=== PATIENT | male | born 1945 | race Caucasian/White ===

== ENCOUNTER 2025-04-14 13:01 | Outpatient (AMB) | payer MEDICARE, SELFPAY ==
[2025-04-14 13:08] VITALS: BMI 29.0
--- NOTE | 2025-04-14 13:08 | A.PHYSOV_ITS ---
Vital Signs 04/14/25 13:08 Height 5 ft 7 in Weight 185 lb BMI 29.0 Intake Visit Reasons: F/U after injection 02/24/2025 Intake Note: Patient is a 79 year old male in office today for a follow up after Bilateral L4 Transforaminal Epidural Injection 02/24/25. Patient felt good for a month. Pain has been back since . [employer] Required: No Allergies lactose Allergy (Unknown, Verified 04/14/25 13:10) Unknown Penicillins Allergy (Unknown, Verified 04/14/25 13:10) Unknown HPI Comments Details: History of Present Illness The patient is an 79 year old male presenting with a follow-up visit for chronic lower back pain, chronic neck pain, and lumbar radiculitis. He received bilateral L4 transforaminal injections on February 24, 2025, which provided a 90% reduction in pain for about one month. The back pain recurred after he was coughing nonstop for a week and and it was severe enough that he was bedridden on . The recurrence of pain coincided with a bad cold that caused him to cough continuously for three weeks, for which he visited the hospital a couple of times. His pain is aggravated by standing and getting up and down, and it is relieved by sitting. He also has a history of pain at the base of his thumbs, for which he received bilateral thumb CMC joint injections on February 19, 2025. He reports that his thumbs have been good since the injections. Pain Description - Location: Lower back, chronic neck pain, and a history of pain at the base of the thumbs. - Quality: Aching. - Severity: The patient described the pain as hurting like hell and noted that on , he was flat on his back and could not get out of bed. - Aggravating Factors: Pain is aggravated by standing, getting up and down from a chair, and getting out of bed. - Alleviating Factors: Pain feels better when sitting down. - Associated Symptoms: He experienced his hands freezing up while he had a cold. Results [facility] Medical History (Updated 04/14/25 @ 13:28 by Renato Parry DO) Osteoarthritis of carpometacarpal (CMC) joint of left thumb Arthritis of carpometacarpal (CMC) joint of right thumb Spinal stenosis, lumbar region with neurogenic claudication Lumbar radiculitis Surgical History History of hand surgery History of cataract surgery History of appendectomy History of hernia repair History of hemorrhoidectomy Hx of CABG Social History Household Members: Spouse Alcohol intake: current Alcohol intake frequency: does not drink Patient Tobacco Use Status: Former Tobacco user Current occupational status: retired Review of Systems Narrative Review of Systems - Constitutional: Denies fever or chills. - Respiratory: Reports a history of a bad cold with significant coughing for three weeks. - Musculoskeletal: Reports recurring lower back pain, which is aggravated by standing and improves with sitting. - General: Reports a history of generalized body aches and hands freezing up associated with a recent viral infection. Physical Exam Exam Exam: Physical Exam Patient appears to be in no acute distress. Appropriately conversant oriented. He ambulates without antalgia. Dural tension signs were negative. Lumbar extension was restricted. He was able to perform heel walk and toe walk with support for balance. The SI provocative maneuvers were negative. Neurological examination was nonfocal. Examination of both thumbs reveals tenderness with palpation over CMC joints. Vital Signs: BMI result Body Mass Index 29.0 Assessment & Plan Assessment & Plan (1) Lumbar radiculitis: Code(s): M54.16 - Radiculopathy, lumbar region Category: Medical (2) Spinal stenosis, lumbar region with neurogenic claudication: Code(s): M48.062 - Spinal stenosis, lumbar region with neurogenic claudication Category: Medical (3) Arthritis of carpometacarpal (CMC) joint of right thumb: Code(s): M18.11 - Unilateral primary osteoarthritis of first carpometacarpal joint, right hand Category: Medical (4) Osteoarthritis of carpometacarpal (CMC) joint of left thumb: Code(s): M18.12 - Unilateral primary osteoarthritis of first carpometacarpal joint, left hand Category: Medical Plan Pain Management - Analgesia: The patient received bilateral L4 transforaminal injections on February 24, 2025, which provided him with a 90% reduction in his painful symptomatology for about one month. - Analgesia: He received bilateral thumb CMC joint injections on February 19, 2025 and reports his thumbs are now good. Plan Patient was informed and verbally consented to the use of an ambient scribe for clinic note documentation during this visit. 1. Chronic Lower Back Pain And Lumbar Radiculitis The patient experienced approximately one month of 90% pain relief following bilateral L4 transforaminal injections on February 24, 2025. His severe pain returned, which may have been exacerbated by a prolonged episode of coughing due to a cold. It is recommended to repeat the bilateral transforaminal injections. The procedure is scheduled for mid-April, and the patient was informed that future injections may need to be spaced further apart due to insurance limitations of four procedures per year. The procedure will be performed with sedation at [facility], and they will contact the patient to schedule. 2. Bilateral Thumb Pain The patient had a good response to bilateral thumb CMC joint injections administered on February 19, 2025. He is currently asymptomatic. No further intervention is required at this time. Discussion Notes I reviewed the patient's recent history, noting that the bilateral L4 transforaminal injections from February 24, 2025 provided good relief for about one month before his pain returned. We discussed that the severe coughing spell he experienced may have aggravated his back condition. I recommended repeating the injections, and we discussed scheduling this for mid-April. I informed the patient and his about insurance limitations, which typically allow for four such procedures per year, necessitating a longer interval between future injections. I explained that all my sedation procedures are now performed at [facility] and that they will be contacted by the facility for scheduling. Patient Instructions - We will request another set of injections for your lower back. - We will try to schedule this for mid-April. - The procedure will now be done at [facility]. - Someone from the hospital will call you to set up the appointment. - Keep in mind that insurance allows about four of these procedures per year, so later in the year, we will have to wait longer between injections. Orders: Referrals Physiatry Procedure Notification M48.062 - Spinal stenosis, lumbar region with neurogenic claudication, M54.16 - Radiculopathy, lumbar region Coding Level of Care Code Est Pt Level 4 (12792) Add On Problem Visit Only Diagnoses Lumbar radiculitis M54.16 Spinal stenosis, lumbar region with neurogenic claudication M48.062 Arthritis of carpometacarpal (CMC) joint of right thumb M18.11 Osteoarthritis of carpometacarpal (CMC) joint of left thumb M18.12
--- OUTSIDE RECORDS SUMMARY | 2025-04-14 16:57 | XMS_ITS ---
Author Name [facility] Organization Unknown Care Team Organization Name Specialty Phone Email Start Date End Da te [facility] Mallika Toure Primary Care 03/07/2022 4
--- OUTSIDE RECORDS SUMMARY | 2025-04-14 16:57 | XMS_ITS | Encounter Summary ---
Author Organization [facility] Address [address] [place] [address] Care Team Providers Care Real Estate Developer Name Role Phone Mallika Toure MD Primary Care Provider Encounter Details Date Type Department Care Team ([facility] st Contact Info) Description 02/23/2025 Results Follow-Up Adult Medicine [facility] [address], [place] [phone] Mallika Toure MD [address], [place] Social History Tobacco Use Types Packs/Day Years Used Date Smoking Tobacco: Former Cigarettes 0.3 Q uit: 04/30/1976 Smokeless Tobacco: Never Alcohol Use Standard Drinks/Week Comments Not Currently 0 (1 standard drink = 0.6 oz pur e alcohol) Housing Instability Answer Date Recorde d Are you worried that in the next 2 months you may not have stable housing? No 03/30/2024 Food Access & Nutrition Answer Date Rec orded Do you have access to a vari ety of food including fruits and vegetables? Yes 03/30/2024 Access to Healthcare Answer Date Record ed Within the last 3 months, ho w many times did you visit the emergency department for your medical care? 1 03/30/2024 Health Literacy Answer Date Recorded How often do you need to hav e someone help you when you read instructions, pamphlets, or other written material from your doctor or pharmacy? Rarely 03/30/2024 Caregiver: How often do you need to have someone help you when you read instructions, pamphlets, or other written material from your doctor or pharmacy? Not on file 03/30/2024 Financial Risk Answer Date Recorded How hard is it for you to pa y for the very basics like food, housing, medical care, and air conditioning / heating? Not very hard 03/30/2024 Transportation Answer Date Recorded Has the lack of transportati on kept you from meetings, work, or from getting things needed for daily living? No Has the lack of transportati on kept you from medical appointments or from getting medications? No 03/30/2024 Social Isolation Answer Date Recorded How often do you feel lonely or isolated from th ose around you? Never 03/30/2024 Food Risk Answer Date Recorded Within the past 12 months we worried whether our food would run out before we got money to buy more. Never true 03/30/2024 Within the past 12 months th e food we bought just didn't last and we didn't have money to get more. Never true 03/30/2024 Dependent Care Answer Date Recorded Do you need help finding or paying for care for your loved ones. For example, vocational childcare teacher or elderly care for an older adult? No 03/30/2024 Education Answer Date Recorded Do you think completing more education or training, like finishing a GED, going to college, or learning a trade, would be helpful for you? No 03/30/2024 Employment and Income Answer Date Recor ded During the last four weeks, have you been actively looking for work? No 03/30/2024 Living Situation Answer Date Recorded What is your living situation? Unrecognized valu e 03/30/2024 Sex and Gender Information Value Date Recorded Sex Assigned at Male 07/22/2024 11:09 AM EDT Legal Sex Male 3:43 AM EST Gender Identity Male 07/22/2024 11:09 AM EDT Sexual Orientation Straight 07/22/2024 11 :09 AM EDT documented as of this encounter Plan of Treatment Upcoming Encounters Date Type Department Care Team (Late st Contact Info) Description 06/26/2025 10:15 AM EST Office Visit Adult Medicine [address] [phone] Alma Weir PA [address], [place] documented as of this encounter Visit Diagnoses Not on filedocumented in this encounter Additional Health Concerns Assessment Noted Time PHQ-9 Depression Total Score: 0 11/11/19 25 12:55 PM EDT documented as of this encounter Care Teams Real Estate Developer Relationship Specialty Start Date End Date Mallika Toure MD [address], [place] PCP - General Internal Medicine 10/29/19 documented as of this encounter
--- OUTSIDE RECORDS SUMMARY | 2025-04-14 16:57 | XMS_ITS | Clinical Summary ---
Author Organization [facility] Address [address] [facility] [address] [place] [phone] Phone Care Team Providers Care Luster Repairer Name Role Phone Unknown, Unknown Primary Care Provider Brianna gutiérrez Social History Tobacco Use Types Packs/Day Years Used Date Smoking Tobacco: Never Assessed Education Answer Date Recorded Are you interested in more education? Not on kayla e 01/15/2025 Are you concerned about learning? Not on file 01/15/2025 No 01/15/2025 No 01/15/2025 Digital Access Answer Date Recorded No 01/15/2025 No 01/15/2025 Reliable internet access at home? Not on file 01/15/2025 Device with a working camera? Not on file Sex and Gender Information Value Date Recorded Sex Assigned at Not on file Legal Sex Male 11:13 AM EDT Gender Identity Not on file Sexual Orientation Not on file Last Filed Vital Signs Vital Sign Reading Time Taken Comments Blood Pressure 114/56 07/07/2019 11:19 AM EDT Pulse - - Temperature - - Respiratory Rate - - Oxygen Saturation 97% 07/07/2019 10:00 AM EDT Inhaled Oxygen Concentration - - Weight - - Height - - Body Mass Index - - Plan of Treatment Health Maintenance Due Date Last Done Comments DEPRESSION SCREENING 1955 ZOSTER VACCINES (2 of 3) 06/13/2012 04/18/2012 RSV VACCINE (1 - 1-dose 75+ series) 2018 Adult Td,Tdap Booster 04/06/2024 04/06/2014, 006 INFLUENZA VACCINE (#1) 2024 , 02/03/2019, 02/08/2018, Additional history exists COVID-19 VACCINE ( - season) 2024 06/26/2020, 06/03/2020 PNEUMOCOCCAL VACCINES (50+ years) Completed 03/10/2016, 07/13/2009 HEPATITIS A VACCINES Aged Out No long er eligible based on patient's age to complete this topic HIB VACCINES Aged Out No longer eligi ble based on patient's age to complete this topic MENINGOCOCCAL VACCINES (ACWY) Aged Out No longer eligible based on patient's age to complete this topic MENINGOCOCCAL VACCINES (B) Aged Out N o longer eligible based on patient's age to complete this topic Medical Devices Not on file Insurance [employer] Care Teams Luster Repairer Relationship Specialty Start Date End Date Unknown, Unknown, PCP - General 10/30/17 Additional Source Comments The information contained in this document represents components of the legal health record. It is not the complete legal health record.[facility]
--- OUTSIDE RECORDS SUMMARY | 2025-04-14 16:57 | XMS_ITS | Continuity of Care Document ---
Author Organization Formerly [facility] Address [address] [place] [address] Care Team Providers Care Superintendent Meters Name Role Phone BAMBI VALENCIA Primary Care Provider UnavailBAMBI Yancey Referring Provider Unavailable BAMBI VALENCIA Primary Care Provider Assessment Encounter Date Assessment Date Assessment LastModified by Organization Details LastModified Time 01/22/2025 01/22/2025 IMPRESSION: Like ly diabetic neuropathy. --2017 onset with recent worsening of bottom of foot pain, worse with walking, like walking on stones. --July 2013 onset of intense whole body tingling in the context of tachycardia secondary to albuterol treatment, with subsequent more moderate tingling continuously of his fingers, and episodically of the rest of his body. Also, April 2014 spontaneous onset of sharp pain with tenderness on the top middle left foot and numbness of the toes digits 2-4. -- July 04, 2023 Likely myofascial syndrome causing ~2021 onset of daily fluctuating mild to severe left skull base to medial left lateral shoulder pain. --May 26, 2024 continuing significant although partial gabapentin benefit for foot neuropathic pain; spontaneous neck pain resolution over months after no help from physical therapy. --January 22, 2025 unchanging partial but sufficient benefit of gabapentin for foot discomfort from neuropathy. Stage III kidney failure so we will watch the gabapentin dosing and monitor for any emerging gait imbalance or mental fogginess. >>>>>>>>>>>>2024 We agreed to make no changes in gabapentin today. >>>>>>>>>>>>May 26, 2024 We will make no changes to the gabapentin for his foot pain. As to the neck pain and physical therapy lack of benefit: If there were truly no home exercises, this is a good reason why the physical therapy did not help. I expressly asked for home exercises in the referral. We will look into this further should he have recurrence of his neck pain in the future. >>>>>>>>>>July 04, 2023 Trigger points in lateral neck muscle, perhaps longissimus, referred up to the skull base. I told him pulled muscle. He has never had physical therapy. I suggested physical therapy. He is happy with this. He says his thought it might be a pulled muscle and she was the one who asked him to bring it up with the healthcare provider. I asked him to give my regards to his as I believe she is right. >>>>>>>>>>June 25, 2023 He is quite happy with the benefit that gabapentin has provided at his Return to his lower dose that he was on before June 2021. He does not want to make any changes for the only residual issue f eet feel like walking on rocks if he takes off his shoes. He is happy just wearing shoes. SHOULD CHANGES BE NEEDED Possible pathways include lamotrigine, lacosamide, and Savella. Savella, as SNRI, has likelihood of causing side effects increased because duloxetine and venlafaxine XR have caused side effects. There are several other medications including tricyclics and anticonvulsants. These other ones have risk factors of cognitive slowing for individuals of this patient's age and therefore are lower in my list of things to try. (Recent data has suggested that gabapentin also suffers from this characteristic although I am unsure how much this has been teased apart from the tiredness that is known side effect from the beginning) PREVIOUS PATHWAY TOWARD CHOOSING MEDICATION REVIEW: Last discussed February 21, 2021: He feels like there is nothing that will really solve his foot pain. We discussed that I agree that there is no cure. But there might be another medication that helps more without the side effects that he has had so far from medication trials. Gabapentin restart in the morning helped a little. However, it took a long time for him to get used to the tiredness of the 300 mg in the morning. Gabapentin can affect gait. Increasing gabapentin more during the daytime is for these reasons less attractive as a path at this time. Gabapentin apparently helps for enlarged prostate, per patient report. I had not known this. Gabapentin helps for his whole body tingling episodes which I had thought related to albuterol. He is feels it happens without taking albuterol. I am not sure what the gabapentin is treating when he says it helps whole body tingling. Perhaps it is anxiety. In any case, I think it is benign. Daytime left foot tingling that he tried gabapentin 300 mg in the morning in late 2016 remains resolved. I will monitor. Previously: January 2020: B12 January 12, 2020 is robustly normal. MMA and homocysteine are borderline high. There may be some trending downward, therefore. I defer further monitoring of B12 to primary care. Diagnostic pathway: Diabetic neuropathy is likely the cause. Myelopathy has been in the differential for his tingling sensory symptoms but I continue to think it unlikely after reviewing imaging. 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 There is no signal change. This degree of cord involvement, especially ventrally (sensation is posterior or central cord) does not suggest that compressive myelopathy relates to his symptomatology. There are no myelopathic signs on exam. Sensory radiculopathy from multifocal severe bilateral neural foraminal narrowing and cervical spine could cause some of his upper extremity tingling (nerve conduction studies and EMG, which have been unrevealing in the upper extremities, are not sensitive to sensory radiculopathy, only to motor radiculopathy). With normal strength, reflexes and sensation on exam in the upper extremities, and with benefit from gabapentin, no further intervention is indicated. Small fiber exclusive neuropathy--which would be occult to electrodiagnostic studies--is a risk as he has diabetes. This may indeed be the diagnosis after all. The only treatment is indicated, other than symptomatic, is continued optimal treatment of diabetes. 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 We discussed this and he agrees. To review other issues: The mode of onset of his left toe numbness--with the sharp pain up to his groin--suggest a possible acute nerve infarct. Diabetes may cause acute nerve infarct. The sharp pain, if it causes a focal nerve infarct, would have to affected a nerve proximally and thus be occult to nerve conduction studies it runs through his leg to his groin so this is a possibility. However, if it was tibial nerve--suggested by the way it affected his toe, it would have to be in the S1 sensory root to not be picked up by nerve conduction studies. PLAN Lai Dougie January 22, 2025 For tingling: CONTINUE gabapentin 600 mg tablets: 1/2 tablet 10:30 AM, one full tablet 8:30 PM Follow-up in 8 months Bhargav Brandon MD, PhD [facility] mrossen Not available 01/22/2025 11:25:32 Plan of Treatment Reminders Order Date Submit Date Provider Last Modified By Organization Details Last Modified Time Details Appointments FOLLOW UP EXT 2025 12:00P M Bhargav Brandon MD PhD Not available Not available Not available Lab None recorded. Referral None recorded. Procedures None recorded. Surgeries None recorded. Imaging None recorded. Medication Orders gabapenti n 600 mg tablet 2024 025 [id number], [address] [place] [address], [place], [address], 01/22/2025 11:25:38 Patient TargetsNo targets recorded. Patient Instructions Encounter Date Encounter Id Patient Instructions Last Modified By Organization Details Last Modified Time 01/22/2025 [id number] PREVIOUS MEDICATION Depakote ER June 29, 2021 causes unacceptable tiredness at either 125 mg or 250 mg and does not help at all. duloxetine: February 21 2021 data on stomach upset from duloxetine or promethazine:Sandra edwards January 06, 2021 neurology follow-up encounter, he started duloxetine 20 mg every morning with food and promethazine before that, 25 mg tablet. This made him extremely tired. He had no GI symptoms. He kept going with both medication for 2 days and then stop both medications. Venlafaxine XR 37.5 mg January 2020: Sick to his stomach, tired, stopped. Gabapentin reduction from 600 mg to 300 mg every evening, unacceptable left foot pain/tingling and bladder slowing, December 2018 Additional gabapentin 300 mg every morning for mild intermittent daytime left foot tingling: Unacceptable tiredness, discontinued leading to December 2017. In 2014 I ordered the following laboratories: Copper, zinc, vitamin E, PTH, vitamin D, ferritin: I have not obtained the results and I continue as I told him in 2015 to defer to primary care on any abnormalities. Chronic condition with exacerbation; prescription medication management mrossen Not available 01/22/2025 11:00:17 Reason for Referral None Reported. Procedures Surgical History Date Name Laterality Status Provider Name and Address Organization Details Recorded Time 01/22/2025 DATA REVIEW completed Bhargav Brandon MD [address] [place] [address], [place], [phone], [facility] 01/22/2025 11:00:17 05/26/2024 DATA REVIEW completed Bhargav Brandon MD [address] [place] [address], [place], [phone], [facility] 05/26/2024 12:06:23 07/04/2023 DATA REVIEW completed Bhargav Brandon MD [address] [place] [address], [place], [phone], [facility] 07/04/2023 12:51:18 06/25/2023 DATA REVIEW completed Bhargav Brandon MD [address] [place] [address], [place], [phone], [facility] 06/25/2023 12:43:43 07/18/2022 DATA REVIEW completed Bhargav Brandon MD [address] [place] [address], [place], [phone], [facility] 07/18/2022 12:07:37 06/29/2021 DATA REVIEW completed Bhargav Brandon MD [address] [place], [place] [address], [phone], [facility] 06/29/2021 10:40:50 04/07/2021 DATA REVIEW completed Bhargav Brandon MD [address] [place], [place] [address], [phone], [facility] 04/07/2021 10:50:42 02/21/2021 DATA REVIEW completed Bhargav Brandon MD [address] [place], [place] [address], [phone], [facility] 02/21/2021 15:20:00 01/06/2021 DATA REVIEW completed Bhargav Brandon MD [address] [place] [address] [place], [phone], [facility] 01/06/2021 11:29:20 Imaging Results None recorded. Procedure Notes None recorded. Medical Equipment None Reported. Medications Name Sig Start Date Stop Date Status Note LastModified by Organization Details LastModified Time freestyle mis lancets active Not Available Not Available Not Available freestyle lite test strips strp active Not Available Not Available Not Available freestyle lancets misc active Not Available Not Available Not Available freestyle freedom lite w/device kit active Not Available Not Available Not Available freestyle tyler lite active Not Available Not Available Not Available cyclobenz aprine 10 mg tablet TAKE 1 TABLET BY MOUTH THREE TIMES A DAY NEEDED FOR MUSCLE SPASMS active Not Available Not Available No t Available furosemid e 40 mg tablet TAKE ONE TABLET BY MOUTH TWICE PER DAY FOR 3 DAYS, THEN TAKE ONE TABLET ONCE PER DAY 90 DAYS active Not Available Not Available No t Available atorvasta tin 40 mg tablet TAKE 1 TABLET BY MOUTH EVERYDAY AT BEDTIME active Not Available Not Available No t Available venlafaxi ne ER 37.5 mg capsule,e xtended release 24 hr TAKE 1 CAPSULE BY MOUTH EVERY MORNING WITH FOOD 06/29 completed Not Available Not Available Not Available prednison e 10 mg tablet TAKE 4 TABS PER DAY X4 DAYS THEN 2 TABS X3 DAYS THEN 1 TAB X2 DAYS active Not Available Not Available No t Available gabapenti n 600 mg tablet TAKE 1/2 TABLET BY MOUTH AT 10:30 AM, 1 FULL TAB 8:30PM active Not Available Not Available No t Available torsemide 20 mg tablet TAKE 1/2 TABLET BY MOUTH EVERY DAY active Not Available Not Available No t Available atorvasta tin 10 mg tablet TAKE 1 TABLET BY MOUTH EVERY DAY active Not Available Not Available No t Available cefpodoxi me 200 mg tablet TAKE 1 TABLET BY MOUTH EVERY 12 HOURS FOR 7 DAYS active Not Available Not Available No t Available azithromy frances 250 mg tablet TAKE 1 TABLET BY MOUTH DAILY FOR 4 DAYS active Not Available Not Available No t Available amiodaron e 200 mg tablet TAKE 2 TABLETS BY MOUTH TWO TIMES A DAY THROUGH 09/16 THEN STARTING 09/17 TAKE 1 TABLET BY MOUTH EVERY DAY FOR 30 DAY active Not Available Not Available No t Available benzonata te 200 mg capsule TAKE 1 CAPSULE BY MOUTH 3 TIMES A DAY NEEDED FOR COUGH FOR 7 DAYS active Not Available Not Available No t Available metoprolo l succinate ER 50 mg tablet,ex tended release 24 hr TAKE 1 TABLET BY MOUTH 1 TIME EACH DAY. active Not Available Not Available No t Available meloxicam 15 mg tablet TAKE 1 TABLET BY MOUTH EVERY DAY active Not Available Not Available No t Available FreeStyle Lancets 28 gauge USE ONCE DAILY BEFORE BREAKFAS T DIRECTED active Not Available Not Available No t Available prednison e 20 mg tablet TAKE 2 TABLETS BY MOUTH EVERY DAY FOR 5 DAYS active Not Available Not Available No t Available isosorbid e mononitra te ER 30 mg tablet,ex tended release 24 hr TAKE 1 TABLET BY MOUTH EVERY DAY IN THE MORNING active Not Available Not Available No t Available metoprolo l succinate ER 100 mg tablet,ex tended release 24 hr TAKE 1 TABLET BY MOUTH EVERY DAY active Not Available Not Available No t Available ciproflox acin 250 mg tablet TAKE 1 TABLET BY MOUTH TWICE A DAY FOR 7 DAYS active Not Available Not Available No t Available doxycycli ne monohydra te 100 mg tablet TAKE 1 TABLET BY MOUTH TWICE A DAY FOR 7 DAYS active Not Available Not Available No t Available tramadol 50 mg tablet TAKE 1 TABLET BY MOUTH EVERY 6 HOURS NEEDED FOR PAIN active Not Available Not Available No t Available spironola ctone 25 mg tablet TAKE 1/2 TABLET BY MOUTH ONCE A DAY active Not Available Not Available No t Available lidocaine -prilocai ne 2.5 %-2.5 % topical cream APPLY TO THE AFFECTED AREA 2 3 TIMES DAILY FOR BURNING PAIN active Not Available Not Available No t Available ketorolac 0.5 % eye drops STARTING TWO DAYS BEFORE SURGERY INSTILL 1 DROP TWICE DAILY IN OPERATIV E EYE active Not Available Not Available No t Available oxycodone -acetamin ophen 5 mg-325 mg tablet TAKE 1 TABLET BY MOUTH EVERY 6 HOURS NEEDED FOR PAIN FOR UPTO 7 DAYS active Not Available Not Available No t Available tamsulosi n 0.4 mg capsule TAKE 1 CAPSULE BY MOUTH EVERY EVENING active Not Available Not Available No t Available phenazopy ridine 100 mg tablet TAKE 1 TABLET BY MOUTH THREE TIMES A DAY FOR 2 DAYS active Not Available Not Available No t Available benzonata te 100 mg capsule TAKE 1 CAPSULE BY MOUTH 3 TIMES DAILY NEEDED FOR COUGH FOR UP TO 10 DAYS. active Not Available Not Available No t Available doxycycli ne monohydra te 100 mg capsule TAKE 1 CAPSULE BY MOUTH TWICE A DAY FOR 10 DAYS active Not Available Not Available No t Available glipizide ER 2.5 mg tablet, extended release 24 hr TAKE 1 TABLET (2.5 MG TOTAL) BY MOUTH ONCE DAILY DO NOT CRUSH, CHEW, OR SPIT active Not Available Not Available No t Available cephalexi n 500 mg capsule TAKE 1 CAPSULE BY MOUTH EVERY 6 HOURS FOR 7 DAYS active Not Available Not Available No t Available promethaz ine 25 mg tablet TAKE 1 TABLET BY MOUTH EVERY DAY TAKE WITH DULOXETI NE 02/21 completed tirednes s Not Available Not Available Not Available metoprolo l tartrate 50 mg tablet TAKE 1 TABLET BY MOUTH TWICE A DAY active Not Available Not Available No t Available nitroglyc radha 0.4 mg sublingua l tablet PLEASE SEE ATTACHED FOR DETAILED DIRECTIO NS active Not Available Not Available No t Available cephalexi n 500 mg tablet TAKE 1 TABLET BY MOUTH 4 TIMES A DAY,X7 DAYS active Not Available Not Available No t Available furosemid e 20 mg tablet TAKE 1 TABLET BY MOUTH EVERY DAY FOR 90 DAYS active Not Available Not Available No t Available warfarin 1 mg tablet TAKE 1 TO 3 TABLETS BY MOUTH DAILY DIRECTED BY THE [facility]MADIN CLINIC active Not Available Not Available No t Available methylpre dnisolone 4 mg tablets in a dose pack active Not Available Not Available Not Available albuterol sulfate HFA 90 mcg/actua tion aerosol inhaler INHALE 2 PUFFS BY MOUTH EVERY 4 HOURS NEEDED FOR WHEEZE OR FOR SHORTNES S OF BREATH active Not Available Not Available No t Available hydroxyzi ne HCl 10 mg tablet TAKE 1 TABLET BY MOUTH DAILY NEEDED FOR ITCHING. active Not Available Not Available No t Available fluticaso ne propionat e 50 mcg/actua tion nasal spray,whit pension active Not Available Not Available Not Available doxycycli ne hyclate 100 mg tablet TAKE 1 TABLET BY MOUTH TWICE A DAY FOR 7 DAYS active Not Available Not Available No t Available finasteri de 5 mg tablet TAKE 1 TABLET BY MOUTH EVERY DAY active Not Available Not Available No t Available tobramyci n 0.3 %-dexamet hasone 0.1 % eye drops,whit pension PUT 1 DROP INTO BOTH EYES 3 TIMES A DAY active Not Available Not Available No t Available oxycodone 5 mg tablet TAKE 1 TABLET BY MOUTH EVERY 8 HOURS NEEDED FOR SEVERE PAIN active Not Available Not Available No t Available neomycin 3.5 mg/g-poly myxin B 10,000 unit/g-de xameth 0.1 % eye oint APPLY TO BOTH EYELIDS AT BEDTIME active Not Available Not Available No t Available eplerenon e 25 mg tablet TAKE 1 TABLET BY MOUTH EVERY DAY active Not Available Not Available No t Available divalproe x ER 250 mg tablet,ex tended release 24 hr 1/2 tablet every evening 1 week, then 1 full tablet every evening. Take with food 06/29 completed Not Available Not Available Not Available cyclobenz aprine 5 mg tablet TAKE 1 TABLET BY MOUTH AT BEDTIME X14 DAYS active Not Available Not Available No t Available alfuzosin ER 10 mg tablet,ex tended release 24 hr TAKE 1 TABLET BY MOUTH EVERYDAY AT BEDTIME active Not Available Not Available No t Available duloxetin e 20 mg capsule,d elayed release Take 1 capsule every day by oral route in the evening. 06/29 completed Not Available Not Available Not Available Advair HFA 230 mcg-21 mcg/actua tion aerosol inhaler INHALE 2 PUFFS INTO THE LUNGS 2 TIMES DAILY active Not Available Not Available No t Available Januvia 25 mg tablet active Not Available Not Available Not Available FreeStyle Lite Strips USE TO TEST BLOOD SUGAR ONCE DAILY active Not Available Not Available No t Available Tradjenta 5 mg tablet TAKE 5 MG BY MOUTH DAILY. active Not Available Not Available No t Available Farxiga 5 mg tablet active Not Available Not Available No t Available Entresto 24 mg-26 mg tablet TAKE 1 TABLET BY MOUTH TWICE A DAY active Not Available Not Available No t Available Wixela Inhub 250 mcg-50 mcg/dose powder for inhalatio n TAKE 1 PUFF BY MOUTH TWICE A DAY *RINSE MOUTH AFTER USE* active Not Available Not Available No t Available Wixela Inhub 500 mcg-50 mcg/dose powder for inhalatio n 1 PUFF INHALATI ON TWICE A DAY RINSE MOUTH, THROAT AFTER TO REDUCE RISK OF THRUSH 30 DAYS active Not Available Not Available No t Available Trelegy Ellipta 200 mcg-62.5 mcg-25 mcg powder for inhalatio n active Not Available Not Available Not Available Vitals None Recorded Social History None recorded. Functional Status None recorded. Mental Status None recorded. Family History Nothing Reported. Medical History No medical history recorded. 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 Health Concerns Section Related Observation LastModified by Organization Detai ls LastModified Time None Recorded Concern Status LastModified by Organization Details LastModified Time None Recorded Payers Encounter Date Sequence Insurance Name Policy Number Policy Baires Covered Member ID Baires Member ID Guarantor Name 01/22/[address] [place] [address] [id number] Lai Hernandez Dougie [id number] Lai Hernandez Dougie Notes Date Note Type Note Provider Name and Address Organization Details Recorded Time 01/22/2025 text/html Follow up for likely neuropathy, likely related to diabetes, presenting with:--July 2013 onset of intense whole body tingling in the context of tachycardia secondary to albuterol treatment-- subsequent more moderate tingling continuously of his fingers, and episodically of the rest of his body.--April 2014 spontaneous onset of sharp pain with tenderness on the top middle left foot and numbness of the toes digits 2-4.--He is accompanied by his Whit She is retired from working at [employer]. >>>>>>>>>>>>Septlluviae 2024Since May 26, 2024 Neurology follow-up encounter, his foot discomfort is about the same, with continued partial but significant benefit on gabapentin 300 mg 10:30 AM & 600 mg 8:30 PM. He notices no side effects. In particular, he has no mental fogginess.We reviewed that he has no pain in his feet g abapentin helps completely for that. He has continuous low-level tingling in his feet as gabapentin has helped significantly but not completely for that tingling. Also, his socks still feel as if they are on when he takes them off. These residual symptoms continue not to bother him. He has had no return of the significant neck pain that bothered him early in 2023. Occasionally his neck hurts a little here and there but nothing like before. His main issue is heart failure. He is working with the heart failure team whom he sees weekly. Pacer/defibrillator is pending. A smart chip in the pulmonary artery is also pending t o monitor any fluid in the lungs that might accumulate.The cardiac failure team tend to change his medication weekly. Otherwise, he has had no medication changes since April 2024.His mentions that he has stage III kidney failure. This is pertinent to gabapentin. We will watch closely for any mental fogginess or unsteadiness with gait that might emerge, especially with worsening kidney function. Should that occur we would reduce the gabapentin. >>>>>>>>>>>>May 26, 2024Since July 04, 2023 Neurology follow-up encounter, he continues on gabapentin 300 mg / 600 mg, 10:30 AM/8:30 PM. He has continuing significant benefit for pain and tingling in his feet, without side effects. He has no pain of his feet. He has a continuous low-level tingling. When he takes off his socks it still feels as if he has socks on. These residual symptoms do not bother him nearly as much as the pain did before starting the gabapentin.He went to physical therapy for his neck pain and June 2023 that hurt like the [place]. Over 6 weeks of two sessions per week, there was no benefit. The neck pain subsequently went away spontaneously over the next ~3 months. He remembers no home exercises given by the physical therapist.He has had no new or changing medications or medical conditions from other healthcare providers since June 2023. M 2023Since June 25, 2023 neurology follow-up encounter, there is tingling and pain are unchanged and he has had no changes in medications.He wanted to talk about a symptom that we had not addressed, but one that has been around for ~2 years, since about 2021: Left-sided neck pain. He points to the left lateral skull base and says the pain seems to go from there down his left lateral neck left lateral neck the medial portion of his lateral shoulder. He remembers no injury or unusual life event around the time that it started. The symptoms are about the same now as those that he remembers in 2021.The left neck/skull base pain is daily, fluctuating so sometimes it is mild, sometimes it hurts like the [place] ye 2023Since July 18, 2022 neurology follow-up encounter, ~11 months ago, he is doing pretty good with his brain, finger tingling and upper arm discomfort. He continues on the gabapentin 600 mg tablets but he stopped the 1/2 tablet at 8:30 AM that we started June 2021 and has continued on the previous baseline dose of 1/2 tablet 10:30 AM one full tablet 8:30 PM. This was because tiredness emerged, after previously not emerging when he went up to the higher dose. Tiredness is however consistent with tiredness he had in years past on total gabapentin dose of 1200 mg/day. He now has no tiredness or any other symptoms he relates to side effects from the gabapentin.Despite going back down on the gabapentin to a lower dose, he continues without any foot pain as long as he wears his shoes. There is no change in the consistent situation throughout all medication changes of feeling like walking on rocks if he walks barefoot. He continues without any finger tingling or other unpleasant upper extremity symptoms. He walks without problems.He has had no changing medications. He has had no new or changing medical conditions. His last major medical issue was addressed by the successful triple bypass heart surgery, August 2021. July 18fter June 29, 2021 neurology follow-up, 1 year and 2.5 weeks ago, he adjusted gabapentin 600 mg tablets upwards, mostly as we had discussed, from starting point 1/2 tablet morning/1 full tablet in the evening so that he is now on 1/2 tablet 8:30 AM, 1/2 tablet 10:30 AM, one full tablet in the evening. This has solved the problem of a year ago when the gabapentin was not helping sufficiently during the day. No longer having any foot pain as long as he wears his shoes. Still has a feeling of walking on rocks if he walks barefoot. He is no longer having any finger tingling or other unpleasant upper extremity symptoms. He is not having significant tiredness w hich had been a problem with higher doses of gabapentin previously. He is walking without any problems.He had triple bypass heart surgery August 2021 successful I am still here. There were some problems with his kidneys afterwards so that he started a water pill (torsemide) That is now under control. Started atorvastatin after heart surgery. He was on warfarin but stopped that 2021. June 29, 2021 follow-up:Since April 07, 2021 neurology follow-up encounter, he has tried Depakote ER 250 mg tablets but stopped because of tiredness. Even though he took them in the evening, he was still tired by early afternoon the next day. I did not ask whether this occurred on 1/2 tablet or whether he reached full tablet on the titration. In any case, he had no benefit for his foot pain at the maximum dose that he took which caused unacceptable side effects. There have been no other changes in medications. In particular he continues gabapentin 300 mg / 600 mg regimen. This continues to help him sufficiently in the morning but insufficiently during the day.We review his daytime symptoms which he detailed January 06, 2021: He wakes with 5/10 painful discomfort from this. He cannot walk more than 200-400 feet before pain becomes 9-10/10 intensity and he has to sit down. It takes about 45 minutes to return to 5/10 baseline discomfort. His chronic pain and discomfort from whole body tingling (which he sometimes calls jitters) and sharp pain in his left foot continue well managed on 600 mg gabapentin at bedtime. (He has previously said that slowed bladder emptying has also been helped; urology has said this is unknown benefit of gabapentin.) The gabapentin at night makes him drowsy so he is able to get to sleep even with the ongoing 5/10 walking on stones discomfort at the bottom of his feet when he is lying down. He continues to stumble when his feet hurt. He still has not fallen. He does the home exercises he learned for balance which she had just started leading up to the February 26, 2020 neurology follow-up encounter. We did not discuss how often he does the home exercises or if he feels that it is helped. He had not found benefit in January 2020. Since February 21, 2021, he restarted on duloxetine 20 mg every morning with food but without the promethazine 25 mg that he had recently taken together with the duloxetine. He again got uncomfortable stomach symptoms and then stopped the duloxetine. His foot pain has continued without change through this course. >>>>>>>>>>>>>>>>>>>> >>>>>>>>>>>>>>>>>>>> >>>Presenting symptomatology was reviewed from August 07, 2014 initial neurology consultation: In July 2013, he had a cold and exacerbation of baseline asthma. He presented to [facility] emergency room and was given 30 min. albuterol treatment, which had worked in the past. It did not work and he was given 60 additional minutes of albuterol with a mask. This still did not work. In addition, heart rate went to 240 and he had onset of severe tingling throughout his body, most prominent in his fingers and his feet. He was kept overnight in the emergency room and heart rate was reduced with medication. The tingling subsided partially, but remained at a lower level. 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 He has had frequent intermittent upper fluctuation of the intensity of this tingling, coinciding with extension of the tingling throughout his body, prominent distally in his hands and feet, and increased heart rate, although not as bad as at the [facility] emergency room. This happens daily. He also wakes nightly with the symptoms. He has become tired during the day. In addition, in April 2014, he had spontaneous onset of sharp intense pain on the top middle of his left foot. He also noticed numbness at the top of his left sided toes 2-4, more at the base and at the tips. There is tenderness in the middle of his foot where he has sharp pain. The foot pain is such that it is difficult to walk without shoes. About once a week, he has a sharp shooting pain from this region of tenderness through his left leg to his inguinal region. His foot doctor has tried an anti-inflammatory medicine for several days. This has not helped. He has diabetes that he treats with diet. Bhargav Brandon MD [address] [place] [address] [place], [phone], [facility] 01/22/2025 11:25:49
--- OUTSIDE RECORDS SUMMARY | 2025-04-14 16:57 | XMS_ITS | Data Portability ---
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 --2017 onset [...] and numbness of the toes digits 2-4. He is quite happy with the benefit that gabapentin has provided at his current dose. He does not want to make any changes for the only residual issue f eet feel like walking on rocks if he takes off his shoes. He is happy just wearing shoes. SHOULD CHANEDS BE NEEDED Possible pathways include lamotrigine, lacosamide, [...] up by nerve conduction studies. PLAN Lai July 18, 2022 CONTINUE gabapentin 600 mg tablets: 1/2 tablet 8:30 AM, 1/2 tablet 10:30 AM, one full tablet 8:30 PM Follow-up in 11 months Bhargav Brandon MD, PhD [facility] mrossen Not available 07/18/2022 12:33:41 06/25/2023 06/25/2023 IMPRESSION: Like ly diabetic neuropathy. --2017 onset [...] and numbness of the toes digits 2-4. He is quite happy with the benefit [...] up by nerve conduction studies. PLAN Lai Constantino June 25, 2023 CONTINUE gabapentin 600 mg tablets: 1/2 tablet 10:30 AM, one full tablet 8:30 PM Follow-up in 11 months Bhargav Brandon MD, PhD [facility] m[facility]en Not available 06/25/2023 13:00:51 07/04/2023 07/04/2023 IMPRESSION: Like ly diabetic neuropathy. --2018 onset with recent worsening of bottom of [...] numbness of the toes digits 2-4. -- Likely myofascial syndrome causing ~2021 onset of daily fluctuating mild to severe left skull base to medial left lateral shoulder pain. >>>>>>>>>>July 04, 2023 Trigger points in lateral [...] up by nerve conduction studies. PLAN Lai Constantino July 04, 2023 For left neck/shoulder pain: PT for: -- Likely myofascial syndrome causing ~2021 onset of daily fluctuating mild to severe left skull base to medial left lateral shoulder pain. For tingling: CONTINUE gabapentin 600 mg tablets: 1/2 tablet 10:30 AM, one full tablet 8:30 PM Follow-up in 11 months Bhargav Brandon MD, PhD [facility] m[facility] Not available 07/04/2023 13:12:09 05/26/2024 05/26/2024 IMPRESSION: Like ly diabetic neuropathy. --2017 onset [...] months after no help from physical therapy. >>>>>>>>>>>>May 26, 2024 We will make no [...] up by nerve conduction studies. PLAN Lai Constantino May 26, 2024 For tingling: CONTINUE gabapentin 600 mg tablets: 1/2 tablet 10:30 AM, one full tablet 8:30 PM Follow-up in 8 months Bhargav Brandon MD, PhD [facility] mrossen Not available 05/26/2024 12:24:31 01/22/2025 01/22/2025 IMPRESSION: Like ly diabetic neuropathy. [...] in 8 months Bhargav Brandon MD, PhD [facility] mrossen Not available 01/22/2025 11:25:32 Plan of Treatment Reminders Order Date Submit Date Provider Last Modified By Organization Details Last Modified Time Details Appointments FOLLOW UP EXT 2025 12:00P Fabian Brandon MD PhD Not available Not available Not available Lab None recorded. Referral neurologi c physical therapist referral - Myofascia l release with home exercises : Likely myofascia l syndrome causing ~2021 onset of daily fluctuati ng mild to severe left skull base to medial left lateral shoulder pain 2023 024 [email or web address] [place], [facility] [address], [place], [address], 09/06/2023 14:55:46 Procedures None recorded. Surgeries None recorded. Imaging None recorded. Medication Orders gabapenti n [address] [facility] ([place] [place]Pharmacy #[id number], [address], [place], [address], 01/22/2025 11:25:38 gabapenti n [address] tablet [address] [facility] ([place] [place]Pharmacy #[id number], [address] [place], [address], 05/26/2024 12:15:35 gabapenti n 600 mg tablet [address] [facility] ([place] [place]Pharmacy #[id number], [address] [facility], [place], [address], 06/25/2023 12:50:40 gabapenti n 600 mg [address] [facility] ([place] [place]Pharmacy #[id number], [address] [place], [address], 07/18/2022 12:19:01 Patient TargetsNo targets recorded. Patient Instructions Encounter Date Encounter Id Patient Instructions Last Modified By Organization Details Last Modified Time 07/18/2022 [id number] PREVIOUS MEDICATION Depakote ER June 29, 2021 [...] I continue as I told him in 2014 to defer to primary care on any abnormalities. chronic condition with exacerbation; prescription medication management. mrossen Not available 07/18/2022 12:34:07 06/25/2023 [id number] PREVIOUS MEDICATION Depakote ER June 29, 2021 causes unacceptable tiredness at either 125 mg or 250 mg and does not help at all. duloxetine: February 21 2021 data on stomach upset from duloxetine or promethazine:Sandra jerry January 06, 2021 neurology follow-up encounter, he [...] I continue as I told him in 2014 to defer to primary care on any abnormalities. chronic condition with exacerbation; prescription medication management. mrossen Not available 06/25/2023 12:43:44 07/04/2023 [id number] PREVIOUS MEDICATION Depakote ER June 29, 2021 causes unacceptable tiredness at either 125 mg or 250 mg and does not help at all. duloxetine: February 21 2021 data on stomach upset from duloxetine or promethazine:Tolukemi edwards January 06, 2021 neurology follow-up encounter, [...] I continue as I told him in 2014 to defer to primary care on any abnormalities. Discussion across issues of diagnoses and management and same day associated chart review and management greater than 50% greater than 30 minutes mrossen Not available 07/04/2023 13:12:18 05/26/2024 [id number] PREVIOUS MEDICATION Depakote ER June 29, 2021 causes unacceptable tiredness at either 125 mg or 250 mg and does not help at all. duloxetine: February 21 2021 data on stomach upset from duloxetine or promethazine:Tolute jerry January 06, 2021 neurology follow-up encounter, he [...] I continue as I told him in 2014 to defer to primary care on any abnormalities. Chronic condition with exacerbation; prescription medication management mrossen Not available 05/26/2024 12:24:43 01/22/2025 [id number] PREVIOUS MEDICATION Depakote ER June 29, 2021 [...] I continue as I told him in 2014 to defer to primary care on any abnormalities. Chronic condition with exacerbation; prescription medication management mrossen Not available 01/22/2025 11:00:17 Reason for Referral Myofascial release with home exercises: Likely myofascial syndrome causing ~2021 onset of daily fluctuating mild to severe left skull base to medial left lateral shoulder pain Referring Physician: Bhargav Brandon, Neurology, Encounter Date: 07/04/2023 Procedures Surgical History Date Name Laterality Status Provider Name and Address Organization Details Recorded Time 01/22/2025 DATA REVIEW completed Bhargav Brandon MD [address] [place] [address] [place], [phone], [facility] 01/22/2025 11:00:17 05/26/2024 DATA REVIEW completed Bhargav Brandon MD [address] [place] [address] [place], [phone], [facility] 05/26/2024 12:06:23 07/04/2023 DATA REVIEW completed Bhargav Brandon MD [address] [place] [address] [place], [phone], [facility] 07/04/2023 12:51:18 06/25/2023 DATA REVIEW completed Bhargav Brandon MD [address] [place] [address] [place], [phone], [facility] 06/25/2023 12:43:43 07/18/2022 DATA REVIEW completed Bhargav Brandon MD [address] [place], [place] [address], [phone], [facility] 07/18/2022 12:07:37 06/29/2021 DATA REVIEW completed Bhargav Brandon MD [address] [place], [place] [address], [phone], [facility] 06/29/2021 10:40:50 04/07/2021 DATA REVIEW completed Bhargav Brandon MD [address] [place], [place] [address], [phone], [facility] 04/07/2021 10:50:42 02/21/2021 DATA REVIEW completed Bhargav Brandon MD [address] [place], [place] [address], [phone], [facility] 02/21/2021 15:20:00 01/06/2021 DATA REVIEW completed Bhargav Brandon MD [address] [place], [place] [address], [phone], [facility] 01/06/2021 11:29:20 Imaging Results None recorded. 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 Abnormal gait 11918164 R 26.81 [id number] Bhargav Brandon MD [facility] [address] [place] [address] [place] [address] 02/21/2021 14:40:27 02/21/2021 15:36:25 Idiopathic progressive polyneuropathy 49498614 G60.3 Abnormal gait 91293480 R 26.81 [id number] Bhargav Brandon MD [facility] [address] [place] [address] [place] [address] 04/07/2021 10:18:23 04/07/2021 11:47:28 Idiopathic progressive polyneuropathy 68213197 G60.3 Abnormal gait 42286957 R 26.81 [id number] Bhargav Brandon MD [facility] [address] [place] [address] [place] [address] 06/29/2021 10:30:23 06/29/2021 11:15:26 Idiopathic progressive polyneuropathy 09309921 G60.3 Abnormal gait 54136463 R 26.81 [id number] Bhargav Brandon MD [facility] [address] [place] [address] [place] [address] 07/18/2022 11:53:39 07/18/2022 16:58:43 Idiopathic progressive polyneuropathy 71888450 G60.3 Abnormal gait 49258723 R 26.81 [id number] Bhargav Brandon MD [facility] [address] [place] [address] [place] [address] 06/25/2023 11:51:22 06/25/2023 13:06:00 Idiopathic progressive polyneuropathy 96280573 G60.3 Abnormal gait 50545372 R 26.81 [id number] Bhargav Brandon MD [facility] [address] [place] [address] [place] [address] 07/04/2023 12:13:08 07/04/2023 16:18:28 Idiopathic progressive polyneuropathy 87871147 G60.3 Abnormal gait 36169742 R 26.81 Dystonia 27059477 G24.1 [id number] Bhargav Brandon MD [facility] [address] [place] [address] [place]ESA [address] 05/26/2024 11:52:29 05/26/2024 17:10:30 Idiopathic progressive polyneuropathy 84121645 G60.3 Abnormal gait 19472695 R 26.81 Dystonia 29298558 G24.1 [id number] Bhargav Brandon MD [facility] [address] [place] [address] [place] [address] 01/22/2025 10:28:27 01/26/2025 13:40:04 Idiopathic progressive polyneuropathy 60862140 G60.3 Abnormal gait 47181639 R 26.81 Dystonia 76487216 G24.1 Health Concerns Section Related Observation LastModified by Organization Detai ls LastModified Time None Recorded Concern Status LastModified by Organization Details LastModified Time None Recorded Advance Directives Directive None Recorded Payers Insurance Date Sequence Insurance Name Policy Number Policy Baires Covered Member ID Baires Member ID Guarantor Name 01/26/2025 1 [facility] [id number] Lai Hernandez Dougie [id number] Lai Hernandez Dougie 05/26/2024 2 [facility] Lai Hernandez Dougie [id number] Lai Hernandez Dougie Notes Date Note Type Note Provider Name and Address Organization Details Recorded Time 07/18/2022 text/html Follow up for likely neuropathy, likely [...] and numbness of the toes digits 2-4. He is unaccompanied (His Whit is in waiting room.) After June 29, 2021 neurology follow-up, 1 year [...] exacerbation of baseline asthma. He presented to [facility] emergency room and was given 30 [...] level. 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 This happens daily. He [...] he treats with diet. Bhargav Brandon MD [address] [place], [place] [address], [phone], [facility] 07/18/2022 12:34:34 06/25/2023 text/html Follow up for likely neuropathy, likely [...] and numbness of the toes digits 2-4. He is unaccompanied (His Whit is in waiting room.) [place] [address], [address]Since July 18, 2022 neurology follow-up encounter, ~11 [...] exacerbation of baseline asthma. He presented to [facility] emergency room and was given 30 [...] level. 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 This happens daily. He [...] he treats with diet. Bhargav Brandon MD [address] [place], [place] [address], [address], [facility] 06/25/2023 13:01:10 07/04/2023 text/html Follow up for likely neuropathy, likely [...] and numbness of the toes digits 2-4. He is unaccompanied (His Whit is in waiting room.) Fabian schultz 2023Since June 25, 2023 neurology follow-up encounter, [...] is mild, sometimes it hurts like the [place]. Nella ye 2023Since July 18, 2022 neurology follow-up [...] exacerbation of baseline asthma. He presented to [facility] emergency room and was given 30 [...] level. 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 This happens daily. He [...] he treats with diet. Bhargav Brandon MD [address] [place] [address], [phone], [facility] 07/04/2023 13:12:34 05/26/2024 text/html Follow up for likely neuropathy, likely [...] and numbness of the toes digits 2-4. He is unaccompanied (His Whit is in waiting room.) >>>>>>>>>>>>May 26, 2024Since July 04, 2023 Neurology [...] and June 2023 that hurt like the [place]. Over 6 weeks of two sessions per week, there was no benefit. The neck pain subsequently went away spontaneously over the next ~3 months. He remembers no home exercises given by the physical therapist.He has had no new or changing medications or medical conditions from other healthcare providers since June 2023. Fabian schultz 2023Since June 25, 2023 neurology follow-up encounter, [...] is mild, sometimes it hurts like the [place]. F cassi 2023Since July 18, 2022 neurology follow-up encounter, [...] exacerbation of baseline asthma. He presented to [facility] emergency room and was given 30 [...] level. 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 This happens daily. He [...] he treats with diet. Bhargav Brandon MD [address] [place] [address] [place], [phone], [facility] 05/26/2024 12:25:04 01/22/2025 text/html Follow up for likely neuropathy, [...] Whit She is retired from working at [employer]. >>>>>>>>>>>>[facility] 2024Since May 26, 2024 Neurology follow-up encounter, [...] and June 2023 that hurt like the [place]. Over 6 weeks of two sessions per week, there was no benefit. The neck pain subsequently went away spontaneously over the next ~3 months. He remembers no home exercises given by the physical therapist.He has had no new or changing medications or medical conditions from other healthcare providers since June 2023. M antoine 2023Since June 25, 2023 neurology follow-up encounter, [...] is mild, sometimes it hurts like the [place]. F cassi 2023Since July 18, 2022 neurology follow-up encounter, [...] exacerbation of baseline asthma. He presented to [facility] emergency room and was given 30 [...] level. 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 This happens daily. He [...] he treats with diet. Bhargav Brandon MD [address] [place] [address] [place], [phone], [facility] 01/22/2025 11:25:49
--- OUTSIDE RECORDS SUMMARY | 2025-04-14 16:57 | XMS_ITS | Encounter Summary ---
Author Organization [facility] Address [address] [place] [address] Phone Care Team Providers Care Litigator Name Role Phone Unknown, Unknown Primary Care Provider Brianna gutiérrez Encounter Details Date Type Department Care Team (Latest Contact Info) Description 10/30/2017 Ancillary Orders [facility] [address] [place] [address] [place] [address] Vincent Choi DO [address] [place] [id number] SOB (shortness of breath) Social History Tobacco Use Types Packs/Day Years Used Date Smoking Tobacco: Never Assessed Sex and Gender Information Value Date Recorded Sex Assigned at Not on file Legal Sex Male 11:13 AM EDT Gender Identity Not on file Sexual Orientation Not on file documented as of this encounter Plan of Treatment Not on file documented as of this encounter Results * Holter Monitor 24 Hours (10/30/2017 11:54 AM EDT) Anatomical Region Laterality Modality Heart Other Narrative 10/30/2017 5:40 PM EDT No symptoms reported. Baseline rhythm is sinus with a minimum heart rate 42 maximum 87 average 57 bpm. Occasional PACs present. Moderate increase in frequency of PVCs, about 5700 during the 24 hours, with 5 beat nonsustained runs present. Impression: Abnormal 24-hour monitor. No symptoms reported. Increased frequency of ventricular ectopy, over 5000 PVCs during the 24 hours, with 25 beat runs of nonsustained ventricular tachycardia. Vincent Choi DO [facility] ORDERABLE S Final Result documented in this encounter Visit Diagnoses Diagnosis SOB (shortness of breath) Shortness of breath SOB (shortness of breath) Shortness of breath documented in this encounter Care Teams Litigator Relationship Specialty Start Date End Date Unknown, Unknown, PCP - General 10/30/17 documented as of this encounter Additional Source Comments The information contained in this document represents components of the legal health record. It is not the complete legal health record.[facility]
--- OUTSIDE RECORDS SUMMARY | 2025-04-14 16:57 | XMS_ITS | Clinical Summary ---
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 3 Active coenzyme Q-10 10 mg capsule Take 1 capsule (10 mg total) by mouth 2 (two) times a day. 2 Active gabapentin (NEURONTIN) 600 mg tablet Take 0.5 tablets (300 mg total) by mouth 2 (two) times a day. 2 Active nitroglycerin (NITROSTAT) 0.[address] 1 tablet (0.4 mg total) under the tongue every 5 (five) minutes if needed for chest pain. 2 Active aspirin 81 mg EC tablet Take 1 tablet (81 mg total) by mouth 1 (one) time each day. Active Wixela Inhub 250-50 mcg/dose diskus inhalerIndicatio ns:Asthma, unspecified asthma severity, unspecified whether complicated, unspecified whether persistent TAKE 1 PUFF BY MOUTH TWICE A DAY *RINSE MOUTH AFTER USE* 60 each 11 4 Active finasteride (PROSCAR) 5 mg tablet TAKE 1 TABLET BY MOUTH EVERY DAY 90 tablet 1 5 Active FreeStyle Lancets 28 gauge lancets USE ONCE DAILY BEFORE BREAKFAST DIRECTED 300 each 1 5 Active atorvastatin (LIPITOR) 40 mg tablet Take 1 tablet (40 mg total) by mouth at bedtime. 90 tablet 1 5 Active glipiZIDE (Glucotrol XL) 2.5 mg 24 hr tablet Take 1 tablet (2.5 mg total) by mouth 1 (one) time each day. Do not crush, chew, or split. 90 each 1 5 Active blood sugar diagnostic (FreeStyle Lite Strips) test strip USE TO TEST BLOOD SUGAR ONCE DAILY 100 strip 1 5 Active sacubitriL-valsa rtan (Entresto) 49-51 mg per tablet Take 1 tablet by mouth 2 (two) times a day. Active carvediloL (COREG) 12.5 mg tablet Take 1 tablet (12.5 mg total) by mouth 2 (two) times a day with meals. Active torsemide (DEMADEX) 20 mg tablet Take 1 tablet (20 mg total) by mouth 1 (one) time each day. Active Active Problems Problem Noted Date Diagnosed Date Acute on chronic congestive heart failure, unspecified heart failure type 02/23/2025 Type 2 diabetes mellitus wit h stage 3b chronic kidney disease, without long-term current use of insulin 09/19/2024 Pleural effusion 04/18/2024 Overview (04/18/2024): Chronic left pleural effusion since CABG Aortic stenosis 04/18/2024 Overview (04/18/2024): moderate Left ventricular dilatation 03/20/2024 Overview (03/20/2024): [facility] in [facility] cardiology. Echocardiogram 02/15/2024. Mild LVH Diastolic dysfunction 03/10/2024 Overview (03/20/2024): [facility] Associates. Echocardiogram from 02/15/2024 revealing moderately dilated left ventricle mild LVH. Moderate global hypokinesis. EF 35 to 40%. Severe diastolic dysfunction. Paradoxical septal motion consistent with postop status. Basal inferior moderately hypokinetic. Left atrium mildly dilated. Right ventricular systolic function low end of normal. Moderate aortic regurgitation. Mild aortic stenosis. Mild to moderate mitral regurgitation. Mild pulmonary hypertension. 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 Yip's note on 01/20/2010. Type 2 diabetes mellitus with cataract 2 Lumbar herniated disc 05/20/2010 Lumbar spondylosis 05/20/2010 Coronary artery disease 03/30/2009 Overview (02/13/2024): s/p DANIELLE to LAD & RCA, [place] Chronic infarcts from nuclear med scan on 01/27/2010 in inferior and anteroseptal areas. 09/18 CABG times 3 Diverticulosis 06/30/2008 Overview (02/13/2024): Incidental finding at colonoscopy 06/30/2008. Gastritis 06/30/2008 Overview (02/13/2024): Erosive antral gastritis at upper GI endoscopy 06/30/2008, biopsies obtained: Erosive gastritis with eosinophils and lymphoid nodules, no evidence of H. Pylori infection. Asthma 04/19/2006 Mixed hyperlipidemia 04/19/2006 Tubular adenoma 04/19/2006 Overview (02/13/2024): Repeat in 3 years (due May 2021) History of colon polyps Overview (04/14/2024): 6-mm tubulovillous adenoma at 15 cm, removed 11/27/1995. Negative colonoscopy 11/30/1998. Negative colonoscopy in 03/16/2004. Negative colonoscopy 06/30/2008, no colon cancer screening needed for 5 years. Resolved Problems Problem Noted Date Diagnosed Date Resolved Date Acute diastolic congestive heart failure 02/23/2025 02/23/2025 Encounters Date Type Department Care Team Description 02/24/2025 1:05 PM EDT - 02/24/2025 11:59 PM EDT Hospital Encounter [facility] Xray [address] [place] [address] Pain Discharge Disposition: Home or Self Care 02/24/2025 12:41 PM EDT Anesthesia Event [facility] Pain Management [address] [place] [address] Alan Watkins MD 02/24/2025 11:55 AM EDT - 02/24/2025 11:59 PM EDT Hospital Encounter [facility] [address] [place] [address] Renato Parry DO Chang, Ling, [employer] Radiculopathy, lumbar region Discharge Disposition: Home or Self Care 02/23/2025 10:30 AM EDT Office Visit Adult Medicine [address] [phone] Mallika Toure MD Acute on chronic congestive heart failure, unspecified heart failure type (CMS/HCC V24, CMS/HCC V28) (Primary Dx); Paroxysmal atrial fibrillation (CMS/HCC V24, CMS/[facility] V28); Coronary artery disease involving coronary bypass graft of [place] heart without angina pectoris; Moderate persistent asthma without complication; Type 2 diabetes mellitus with stage 3b chronic kidney disease, without long-term current use of insulin ([facility] V24, [facility] V28); Chronic cough 02/23/2025 Results Follow-Up Adult Medicine [address] [phone] Mallika Toure MD 01/28/2025 3:34 PM EDT - 01/28/2025 11:59 PM EDT [facility] [phone] Discharge Disposition: Home or Self Care 01/28/2025 3:15 PM EDT Office Visit Walk-In Clinic - [address] [phone] Bhargav Corona NP Acute pain of left wrist (Primary Dx) 01/28/2025 Nurse Triage Adult Medicine [address] [phone] Mallika Toure MD from Last 3 Months Immunizations Immunization Administration Dates Next Due COVID-19 (Pfizer/Comirnaty) 12yo and older 01/12/2024,05/10/2023 Influenza Quadravalent, MDCK , 0.5ml, with preservative (Flucelvax) 6mo and older 03/05/2017 Influenza trivalent, 0.5mL ( Fluad) 65yo and older 01/12/2024,02/23/2023,02/07/2021,02/26,02/03/2019,02/08/2018 Influenza trivalent, 0.5mL ( Fluzone High-dose) 65yo and older 04/06/2025 Influenza trivalent, 0.5mL, preservative free (Fluarix; FluLaval; Fluzone) ages 6mo and older (Afluria) 3 years and older 03/10/2016,04/06/2014,05/02/2013,02/25,02/24/2011,02/18/2010 Influenza, Unspecified 02/22/2022 Pfizer (ages 12 & older) Biv alent, COVID-19 05/10/2023,01/18/2022 Pfizer SARS-CoV-2 COVID-19, mRNA, LNP-S, preservative free 01/12/2024 Pneumococcal conjugate 13 va lent (Prevnar 13, PCV13) 2mo and older 03/10/2016 Pneumococcal polysaccharide 23 valent (Pneumovax 23) 2yo and older 07/13/2009 RSV, bivalent, protein subun it RSVpreF, 0.5mL, Preservative Free (Arexvy) 50yo and older 03/12/2023 Td Tetanus diptheria (Tdvax) 7yo and older 04/30/2005 Tdap Tetanus diptheria acell ular pertussis (Boostrix; Adacel) 7yo and older 04/06/2014 Zoster Live 04/18/2012 Surgical History Surgery Date Site/Laterality Comments OTHER SURGICAL HISTORY right-hand tendon surgery HEMORRHOID SURGERY HEMMORROIDECTOMY HERNIA REPAIR 06/07/2016 umbilical COLONOSCOPY 2013 7 mm polyp mid right colon: tubular adenoma UPPER GASTROINTESTINAL ENDOSCOPY 2013 normal COLONOSCOPY 06/30/2008 diverticulosis, no polyps UPPER GASTROINTESTINAL ENDOSCOPY 06/30/2008 Gastritis: Erosive gastritis, no H. pylori infection. COLONOSCOPY 03/16/2004 negative examination COLONOSCOPY 11/30/1998 : negative examination COLONOSCOPY 11/27/1995 : 6-mm tubulovillous adenoma at the rectosigmoid junction UPPER GASTROINTESTINAL ENDOSCOPY 06/26/2018 : normal COLONOSCOPY 06/26/2018 diminutive colon polyps x 3, path: tubular adenomas x 3. CATARACT EXTRACTION Bilateral APPENDECTOMY CORONARY ARTERY BYPASS GRAFT 04/30/2021 - 04/29/2022 CABG X 3 AT [facility] Medical History Medical History Date Comments Asthma 04/19/2006 Coronary artery disease 03/30/2009 s/p DANIELLE to LAD & RCA, [place] Chronic infarcts from nuclear med scan on 01/27/2010 in inferior and anteroseptal areas. Gastritis 06/30/2008 Erosive antral g astritis at upper GI endoscopy 06/30/2008, biopsies obtained: Erosive gastritis with eosinophils and lymphoid nodules, no evidence of H. Pylori infection. Lumbar herniated disc 05/20/2010 Lumbar spondylosis 05/20/2010 Macular degeneration 04/06/2014 : Left eye Mixed hyperlipidemia 04/19/2006 Senile nuclear sclerosis 03/25/[address] Yip's note on 01/20/2010. Type 2 diabetes mellitus wit h cataract ([facility] V24, [facility] V28) 03/25/2012 Umbilical hernia without obs truction and without gangrene 06/22/2015 History of colon polyps 04/19/2006 6-mm tub ulovillous adenoma at 15 cm, removed 11/27/1995. Negative colonoscopy 11/30/1998. Negative colonoscopy in 03/16/2004. Negative colonoscopy 06/30/2008, no colon cancer screening needed for 5 years. BPH (benign prostatic hyperplasia) 12/18/2019 Cardiomyopathy ([place] [id number], [place] [id number]) 10/07/2020 DM (diabetes mellitus), type 2 with peripheral vascular complications ([facility] V24, [facility] V28) 05/27/2021 COVID-19 virus infection 07/11/2021 : 3.13. 22 Chronic kidney disease, stag e 4 (severe) ([facility] V24, [facility] V28) 10/05/2021 Carotid stenosis, bilateral 11/21/201807/20 right 16-49%; left 50-79% Diverticulosis 06/30/2008 Incidental findi ng at colonoscopy 06/30/2008. Pleural effusion 04/18/[address] eural effusion since CABG Aortic stenosis 04/18/2024 moderate Acute diastolic congestive h eart failure ([facility] V24, [facility] V28) 02/23/2025 Family History Medical History Relation Name Comments Colon cancer Brother Other: no history known Father unkn own Blindness Maternal Grandmother Diabetes Mother Colon cancer Other nephew with mets to li delfin at age 46 Colon cancer Sister glaucoma Relation Name Status Comments Brother Father Maternal Grandmother Mother Other nephew Alive Sister Social History Tobacco Use Types Packs/Day Years Used Date Smoking Tobacco: Former Cigarettes 0.3 Q uit: 04/30/1976 Smokeless Tobacco: Never Tobacco Cessation:Counseling Given: Not Answered Alcohol Use Standard Drinks/Week Comments Not Currently [...] care for your loved ones. For example, children teacher or elderly care for an older [...] Orientation Straight 07/22/2024 11 :09 AM EDT Last Filed Vital Signs Vital Sign Reading Time Taken Comments Blood Pressure 127/86 02/24/2025 1:31 PM EDT Pulse 75 02/24/2025 1:31 PM EDT Temperature 37.1 C (98.7 F) 02/24/2025 1:04 PM EDT Respiratory Rate 20 02/24/2025 1:04 PM EDT Oxygen Saturation 99% 02/24/2025 1:31 PM EDT Inhaled Oxygen Concentration - - Weight 88 kg (194 lb) 02/24/2025 12:10 PM EDT Height 170.2 cm (5' 7 ) 02/24/2025 12:10 PM EDT Body Mass Index 30.38 02/24/2025 12:10 PM EDT Plan of Treatment Upcoming Encounters Date Type Department Care Team (Late st Contact Info) Description 06/26/2025 10:15 AM EST Office Visit Adult Medicine [facility] [address] [place] [phone] Alma Weir PA [address] [place] [address] Health Maintenance Due Date Last Done Comments Diabetes: Annual Foot Exam 1955 Diabetes: Annual Retina Eye Exam 1955 Zoster Vaccines (1 of 2) 06/13/2012 04/18/2012 DTaP,Tdap,and Td Vaccines (3 - Td or Tdap) 04/06/2024 04/06/2014, 04/30/2005 Medicare Annual Wellness Visit 12/26/2024 12/27/2023 COVID-19 Vaccine ( season) 2024 01/12/2024, 01/12/2024, 05/10/2023, Additional history exists Social Influencers of Health Screening 03/30/2025 03/30/2024 Diabetes: Annual GFR (Glomerular Filtration Rate) 04/02/2025 04/02/2024, 07/11/2023 Hypertension/CHF/CAD Annual BMP Blood Test 04/02/2025 04/02/2024, 07/11/2023 Diabetes: Blood Sugar Control Test (HGBA1C) 08/24/2025 02/23/2025, 11/04/2024, 07/07/2024, Additional history exists Diabetes: Annual Urine Albumin-Creatinine Ratio (uACR) 10/02/2025 10/02/2024, 04/02/2024, 12/24/2023 Falls Risk Assessment 02/24/2026 02/24/2025, 024 Cholesterol Screening (Lipid Panel) 04/02/2029 04/02/2024, 03/30/2023 Pneumococcal Vaccine: 50+ Years Completed 03/10/2016, 07/13/2009 RSV Immunization Adult Patients Completed 03/12/2023 Depression Screening Completed 02/22/2025, 12/27/19 24 Influenza Vaccine Completed 04/06/2025, , 02/23/2023, Additional history exists HIB Vaccines Aged Out No longer eligi ble based on patient's age to complete this topic HPV Vaccines Aged Out No longer eligi ble based on patient's age to complete this topic Hepatitis A Vaccines Aged Out No long er eligible based on patient's age to complete this topic Hepatitis B Vaccines Aged Out No long er eligible based on patient's age to complete this topic IPV Vaccines Aged Out No longer eligi ble based on patient's age to complete this topic MMR Vaccines Aged Out No longer eligi ble based on patient's age to complete this topic Meningococcal ACWY Vaccine Aged Out N o longer eligible based on patient's age to complete this topic Meningococcal B Vaccine Aged Out No l onger eligible based on patient's age to complete this topic RSV Immunization Patients Under 20 months Aged Out No longer eligible based on patient's age to complete this topic Varicella Vaccines Aged Out No longer eligible based on patient's age to complete this topic Procedures Procedure Name Priority Date/Time Associated Diagnosis Comments ECHO 03/30/2025 POCT GLUCOSE BLOOD Routine 02/24/2025 12 :07 PM EDT HEMOGLOBIN A1C Routine 02/23/2025 11:01 AM EDT Type 2 diabetes mellitus with stage 3b chronic kidney disease, without long-term current use of insulin ([facility] V24, [facility] V28) XR WRIST 3+ VIEWS LEFT STAT 01/28/2025 3:39 PM EDT Acute pain of left wrist MICROALBUMIN CREATININE URINE RATIO Routine 04/02/2024 10:50 AM EST Type II diabetes mellitus with neurological manifestations ([facility] V24, [facility] V28) Type 2 diabetes mellitus with cataract ([facility] V24, CMS/[facility] V28) COMPREHENSIVE METABOLIC PANEL Routine 04/02/2024 10:50 AM EST Type II diabetes mellitus with neurological manifestations ([facility] V24, CMS/[facility] V28) Type 2 diabetes mellitus with cataract ([facility] V24, CMS/[facility] V28) LIPID PANEL WITH REFLEX TO DIRECT LDL Routine 04/02/2024 10:50 AM EST Type II diabetes mellitus with neurological manifestations ([facility] V24, CMS/[facility] V28) Type 2 diabetes mellitus with cataract ([facility] V24, CMS/[facility] V28) DEPRESSION SCREENING Routine 12/27/2023 FALLS RISK ASSESSMENT Routine 08/15/2023 from Last 3 Months or Most Recently Relevant to Health Maintenance Results * Echo (03/30/2025) Anatomical Region Laterality Modality Other Provider [place] [employer] CV HISTORICAL CONV PROCE DURES Final Result * (ABNORMAL) POCT Glucose, blood (02/24/2025 12:07 PM EDT) Glucose POCT 136(H) 70 - 100 mg/dL 02/24/2025 12:08 PM EDT [facility] Blood Capillary blood specimen / Unknown 02/24/2025 12:07 PM EDT 02/24/2025 12:10 PM EDT Talya Mccarthy CRNA LAB POINT OF CARE TE ST DOCKED DEVICE UNSOLICITED RESULTS Final Result Performing Organization Address [facility] Co de Phone Number [facility] [address] [place] [address], [place] [phone] * (ABNORMAL) Hemoglobin A1c (02/23/2025 11:01 AM EDT) Hemoglobin A1C 6.8(H) <6.5 % LAB CHEMISTRY METHOD 02/23/2025 1:43 PM EDT [facility] Mean Bld Glu Estim. 148 mg/dL LAB CHEMISTRY METHOD 02/23/2025 1:43 PM EDT [facility] Blood Venous blood specimen / Unknown Venipuncture / Unknown 02/23/2025 11:01 AM EDT 02/23/2025 11:01 AM EDT Mallika Toure MD LAB BLOOD ORDERABLES Final Resul t Performing Organization Address [facility] Co de Phone Number [facility] [address] [place] [address], [place] [phone] * XR Wrist 3+ Views Left (01/28/2025 3:39 PM EDT) Anatomical Region Laterality Modality Upper Extremities, Wrist Left Radiogr aphic Imaging 01/28/2025 4:03 PM EDT Impressions 01/28/2025 4:09 PM EDT Degenerative changes, 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 -------- FINAL REPORT -------- Dictated By: Agata Prather Dictated Date: 01/28/2025 16:03 ET Assigned Physician: Agata Prather Reviewed and Electronically Signed By: Agata Prather Signed Date: 01/28/2025 16:09 ET Workstation ID: [id number] Transcribed By: Self Edit Transcribed Date: 01/28/2025 16:03 ET Narrative 01/28/2025 4:09 PM EDT EXAM: Left wrist x-ray HISTORY: Left wrist pain for 2 weeks. COMPARISON: None, correlation with left hand radiography 11/05/2014 FINDINGS: 3 views were performed. Severe degenerative changes again noted at the first CMC joint with joint space narrowing, osteophytes, and subchondral sclerosis. Milder degenerative changes at the triscaphe and IP joints. No acute fracture or malalignment detected. No destructive bone lesion. Vascular calcifications in the soft tissues. Procedure Note Agata Prather MD - 01/28/2025 EXAM: Left wrist x-ray HISTORY: Left wrist pain for 2 weeks. COMPARISON: None, correlation with left hand radiography 11/05/2014 FINDINGS: 3 views were performed. Severe degenerative changes again noted at the first CMC joint with jointspace narrowing, osteophytes, and subchondral sclerosis. Milderdegenerative changes at the triscaphe and IP joints. No acute fracture ormalalignment detected. No destructive bone lesion. Vascular calcificationsin the soft tissues. 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 -------- FINAL REPORT -------- Dictated By: Agata Prather Dictated Date: 01/28/2025 16:03 ET Assigned Physician: Agata Prather Reviewed and Electronically Signed By: Agata Prather Signed Date: 01/28/2025 16:09 ET Workstation ID: [id number] Transcribed By: Self Edit Transcribed Date: 01/28/2025 16:03 ET Bhargav Corona NP IMG XR PROCEDURES Final Resul t * (ABNORMAL) Lipid panel with reflex to direct LDL (04/02/2024 10:50 AM EST) Cholesterol 129 0 - 200 mg/dL LAB CHEMISTRY METHOD 04/02/2024 2:26 PM EST [facility] Triglycerides 142 0 - 150 mg/dL LAB CHEMISTRY METHOD 04/02/2024 2:26 PM EST [facility] HDL 39(L) >=40 mg/dL LAB CHEMISTRY METHOD 04/02/2024 2:26 PM EST [facility] LDL Calculated 62 0 - 100 mg/dL LAB CHEMISTRY METHOD 04/02/2024 2:26 PM EST [facility] VLDL Cholesterol El 28.4 mg/dL LAB CHEMISTRY METHOD 04/02/2024 2:26 PM EST [facility] Non HDL Chol. (LDL+VLDL) 90 <145 mg/dL LAB CHEMISTRY METHOD 04/02/2024 2:26 PM [facility] Chol/HDL Ratio 3.3 0.0 - 4.4 LAB CHEMISTRY METHOD 04/02/2024 2:26 PM EST [facility] Blood Venous blood specimen / Unknown Venipuncture / Unknown 04/02/2024 10:50 AM EST 04/02/2024 10:50 AM EST us Alma ROGERS LAB BLOOD ORDERABLES Final Re sult Performing Organization Address [facility]/ZIP Co de Phone Number [facility] [address] [place] [address], [place] [phone] * Microalbumin creatinine urine ratio (04/02/2024 10:50 AM EST) Creatinine, Urine 327.0 mg/dL LAB CHEMISTRY METHOD 04/02/2024 1:09 PM [facility] Microalb, Ur 27.6 0.0 - 29.0 mg/L LAB CHEMISTRY METHOD 04/02/2024 1:09 PM [facility] Microalb/Creat Ratio 8 <30 mg/g creat LAB CHEMISTRY METHOD 04/02/2024 1:09 PM [facility] Urine Urine specimen from urethra / Unknown Non-blood Collection / Unknown 04/02/2024 10:50 AM EST 04/02/2024 10:50 AM EST us Alma ROGERS LAB URINE ORDERABLES Final Re sult Performing Organization Address [facility]/ZIP Co de Phone Number [facility] [address] [place] [address], [place] [phone] * (ABNORMAL) Comprehensive metabolic panel (04/02/2024 10:50 AM EST) [facility] Signature Sodium 142 133 - 145 mmol/L LAB CHEMISTRY METHOD 04/02/2024 2:26 PM [facility] Potassium 4.0 3.5 - 5.5 mmol/L LAB CHEMISTRY METHOD 04/02/2024 2:26 PM [facility] Chloride 108 96 - 110 mmol/L LAB CHEMISTRY METHOD 04/02/2024 2:26 PM [facility] CO2 28 21 - 32 mmol/L LAB CHEMISTRY METHOD 04/02/2024 2:26 PM [facility] Anion Gap 6 3 - 11 LAB CHEMISTRY METHOD 04/02/2024 2:26 PM [facility] Glucose 151(H) 70 - 100 mg/dL LAB CHEMISTRY METHOD 04/02/2024 2:26 PM [facility] BUN 24 5 - 25 mg/dL LAB CHEMISTRY METHOD 04/02/2024 2:26 PM [facility] Creatinine 1.63(H) 0.70 - 1.30 mg/dL LAB CHEMISTRY METHOD 04/02/2024 2:26 PM [facility] eGFR 42(L) >=60 mL/min/1. 73m2 LAB CHEMISTRY METHOD 04/02/2024 2:26 PM [facility] Comment:Calculation based on the Chronic Kidney Disease Epidemiology Collaboration (CKD-EPI) equation refit without adjustment for race. BUN/Creatinine Ratio 14.7 LAB CHEMISTRY METHOD 04/02/2024 2:26 PM [facility] Calcium 9.6 8.5 - 10.5 mg/dL LAB CHEMISTRY METHOD 04/02/2024 2:26 PM [facility] AST (SGOT) 14 10 - 42 unit/L LAB CHEMISTRY METHOD 04/02/2024 2:26 PM [facility] ALT (SGPT) 19 10 - 60 unit/L LAB CHEMISTRY METHOD 04/02/2024 2:26 PM EST [facility] Alkaline Phosphatase 88 42 - 121 unit/L LAB CHEMISTRY METHOD 04/02/2024 2:26 PM EST [facility] Total Protein 6.6 6.0 - 8.0 g/dL LAB CHEMISTRY METHOD 04/02/2024 2:26 PM [facility] Albumin 3.7 3.2 - 5.0 g/dL LAB CHEMISTRY METHOD 04/02/2024 2:26 PM [facility] Total Bilirubin 0.8 0.0 - 1.4 mg/dL LAB CHEMISTRY METHOD 04/02/2024 2:26 PM [facility] Blood Venous blood specimen / Unknown Venipuncture / Unknown 04/02/2024 10:50 AM EST 04/02/2024 10:50 AM EST Alma ROGERS LAB BLOOD ORDERABLES Final Re sult Performing Organization Address City/State/[facility] Co de Phone Number [facility] [address] [place] [address], * Depression Screening (12/27/2023) Depression Screening ABSTRACTED Historical Provider HEALTH MAINTENANCE Final Result * [place] Risk Assessment (08/15/2023) Pathologist [facility] [place] Risk Assessment ABSTRACTED Historical Provider HEALTH MAINTENANCE Final Result from Last 3 Months or Most Recently Relevant to Health Maintenance Insurance [employer] [place] MED[employer] ADVANTAGE Care Teams [employer] Relationship Specialty Start Date End Date Mallika Toure MD [address] [place] [id number] PCP - General Internal Medicine 10/29/19
== END 2025-04-14 13:28 | disposition home or self-care (01) ==
LOC: HO.HPHYS 13:01
PROVIDERS: Visit Provider Physical Medicine & Rehabilitation
DX: M54.16 Radiculopathy, lumbar region (principal); M48.062 Spinal stenosis, lumbar region with neurogenic claudication; M18.0 Bilateral primary osteoarthritis of first carpometacarpal joints
CPT/HCPCS: 99214; G2211

== ENCOUNTER → 2025-04-14 13:01 | Outpatient (BNVA) | payer MEDICARE, SELFPAY | PROVIDERS: Visit Provider Physical Medicine & Rehabilitation | DX: M54.16 Radiculopathy, lumbar region (principal); M48.062 Spinal stenosis, lumbar region with neurogenic claudication; M18.0 Bilateral primary osteoarthritis of first carpometacarpal joints; G89.29 Other chronic pain | CPT/HCPCS: 99212 ==